=== PATIENT | male | born 1955 | race Caucasian/White ===

== ENCOUNTER 2023-09-10 10:48 | Emergency (ER) | payer OTHER, SELFPAY ==
[2023-09-10 11:00] VITALS: BP 137/85
--- NOTE | 2023-09-10 11:20 | ED.GENMED ---
History of Present Illness
<Alma Donnelly PA-C - Last Filed: 09/10/23 13:53>
General
Chief Complaint: Chest Problem
Source: patient
Exam Limitations: none
Time Seen by Provider: 09/10/23 11:14
Nursing documentation reviewed up to this point in time: agreed with
History of Present Illness
History of Present Illness:
This is a 67 y/o male with a pmh of tobacco use presenting emergency room today with concerns of left-sided chest pain, left upper back pain for the past few days. Patient states that he will wake up and think he is having a heart attack. Patient
states that when he wakes up he will feel pain on the left side of his chest and then he states that this pain will start to subside as the day goes on. Patient states that he has had shingles in the past but does not recall where it was on his
body. Patient states he also has a rash on his left upper back. Patient states that the rash has gotten better. Patient denies any fevers or chills. Patient denies any personal history of cardiac disease, denies any family history of cardiac
disease. Patient denies any shortness of breath. Patient states that he is use no recent antibiotics. 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
be worse at the end of the day of work.
Past History
<Alma Donnelly PA-C - Last Filed: 09/10/23 13:53>
Past History
ED Past Medical History: None
ED Past Surgical History: None
Social History
Tobacco: Smoker
Alcohol: Daily
Drug: None
Personal:
Living: with family
Employment: Employed
Review of Systems
<Alma Donnelly PA-C - Last Filed: 09/10/23 13:53>
Review of Systems
All Other Systems: ROS reviewed and negative except as documented in HPI and ROS
Phy Exam
<Alma Donnelly PA-C - Last Filed: 09/10/23 13:53>
Physical Exam
Physical Exam:
General: Patient is well appearing and in no acute distress; non-toxic
Skin: Warm and dry, there is a healing herpetic rash on the left back along the T1-T2 dermatome
Head: Normocephalic, atraumatic
Eyes: Sclera non-icteric. EOMs intact. PERRLA.
Cardiac: Regular rate and rhythm, no murmurs. No tenderness palpation external chest wall
Peripheral Vascular: No lower extremity swelling or edema.
Pulm: Normal respiratory effort, no wheezes, rales, or rhonchi
Musculoskeletal: No pain with passive ROM of left shoulder. Full ROM of bilateral upper and lower extremities.
Neuro: CN II-XII intact, no focal neurologic deficits.
Psychiatric: Appropriate mood and affect.
Course
<Alma Donnelly PA-C - Last Filed: 09/10/23 13:53>
Orders/Labs/Results
Orders:
Orders
09/10/23 11:04
Electrocardiogram (*1) Urgent
Reason for Study: Other
Other Reason for Exam: chest problem
09/10/23 11:05
EKG- Treatment ONCE
09/10/23 11:43
Gabapentin [Neurontin] 100 mg PO NOW STA
09/10/23 11:47
Gabapentin [Neurontin] 300 mg PO NOW STA
09/10/23 12:14
Troponin I Urgent
Vital Signs
Initial and Last Documented VS:
Initial Vital Signs
Temp Pulse Resp BP Pulse Ox
97.5 F 75 18 137/85 97
09/10/23 11:00 09/10/23 11:00 09/10/23 11:00 09/10/23 11:00 09/10/23 11:00
Last Documented Vital Signs
Temp Pulse Resp BP Pulse Ox
97.5 F 72 16 114/89 96
09/10/23 11:00 09/10/23 12:04 09/10/23 12:04 09/10/23 11:22 09/10/23 12:04
<Malachi Patel DO - Last Filed: 09/10/23 11:46>
Orders/Labs/Results
Orders:
Orders
09/10/23 11:04
Electrocardiogram (*1) Urgent
Reason for Study: Other
Other Reason for Exam: chest problem
09/10/23 11:05
EKG- Treatment ONCE
09/10/23 11:43
Gabapentin [Neurontin] 100 mg PO NOW STA
09/10/23 11:47
Gabapentin [Neurontin] 300 mg PO NOW STA
09/10/23 12:14
Troponin I Urgent
Vital Signs
Initial and Last Documented VS:
Initial Vital Signs
Temp Pulse Resp BP Pulse Ox
97.5 F 75 18 137/85 97
09/10/23 11:00 09/10/23 11:00 09/10/23 11:00 09/10/23 11:00 09/10/23 11:00
Last Documented Vital Signs
Temp Pulse Resp BP Pulse Ox
97.5 F 72 16 114/89 96
09/10/23 11:00 09/10/23 12:04 09/10/23 12:04 09/10/23 11:22 09/10/23 12:04
<Alma Donnelly PA-C - Last Filed: 09/10/23 13:53>
MDM/Problems Addressed
Differential Diagnosis Includes:
ddx include post herpetic neuralgia, unstable angina, costochondritis, musculoskeletal sprain/strain
MDM/Problems Addressed:
Chest pain:
This is a 67 y/o male with a pmh of tobacco use presenting emergency room today with concerns of left-sided chest pain, left upper back pain for the past few days. Patient states that he will wake up and think he is having a heart attack. Patient
states that when he wakes up he will feel pain on the left side of his chest and then he states that this pain will start to subside as the day goes on. Patient has had shingles in the past. On exam, he does have healing herpetic lesions on the
left side of the back on T1 1 T2 dermatome. Doubt ACS, most likely postherpetic neuralgia but considering patient age, and other risk factors, EKG and troponin was ordered which demonstrates an normal sinus rhythm first-degree AV block and an
undetectable troponin. During these findings, patient stable for discharge, will treat patient with gabapentin. Patient stable for discharge follow-up with his primary care provider.
Chronic conditions affecting care:
previous tobacco use, hx of shingles
Acute Exacerbation and/or Progression of Chronic Illness:
n/a
<Alma Donnelly PA-C - Last Filed: 09/10/23 13:53>
*Pulse Oximetry
Patient hypoxic: no
*EKG
Interpreted by ED Provider?: Yes
EKG Intrepretation Date: 09/10/23
Interpretation: abnormal
Comparison EKG: changes noted (SC interval increase)
Heart Rate: 68
Rate: normal
Rhythm: sinus
Nova: normal axis
Interval: first degree heart block
QRS Pattern: normal QRS
Ischemia: no ischemia
*Critical Care Note
Total Time (30-74mins, 75-104mins- exclusive of procedures): Not Applicable
Data Reviewed
Review of Other/Old Records Reveals: Records (reviewed ER physician documentation from 10/11/16 where patient was seen for chest wall pain)
Source: patient and records
<Alma Donnelly PA-C - Last Filed: 09/10/23 13:53>
Patient Management
Escalation/DeEscalation of care consider admission/obs:
Admit not indicated. Patient stable for discharge.
<Alma Donnelly PA-C - Last Filed: 09/10/23 13:53>
Update Note
Update Note:
1:00 pm-- Patient notes an improvement in her symptoms
ED Attending Note
<Alma Donnelly PA-C - Last Filed: 09/10/23 13:53>
-
Portions of this chart may have been created with voice recognition software.� Occasional wrong word or��sound alike� substitutions may have occurred due to the inherent limitations of voice recognition software.
<Malachi Patel DO - Last Filed: 09/10/23 11:46>
ED Attending Note
Patient seen and examined by attending physician: Yes
I performed the substantive portion of visit, reviewed & personally made and approve the management plan that is documented in note by myself or JABARI.: Yes
ED Attending Note:
I have seen and evaluated the patient with a [id number] encounter. I have spoken to the advance practicer provider and involved in the medical history, the physical exam, medical decision making.
Evaluation and management service: agree unless noted differently below.
Results interpretation: agree unless noted differently below.
Focused HPI: 67-year-old male presenting with left-sided chest pain. Patient states it is intermittent and not worse with exertion or food intake. Of note, patient found to have a rash around his left flank. It does resemble shingles. Patient
states he noted a week ago the rash is actually improved
Physical exam: Sitting in bed comfortably. Shingles rash noted to left flank. Heart regular rate and rhythm
Medical Decision Making: We discussed likely postherpetic neuralgia. Will start gabapentin. Given duration of symptoms, will obtain 1 troponin. Screening EKG nonischemic
Discharge Plan
Departure
Patient Disposition: Home (Routine Discharge)
Date of Disposition: 09/10/23
Time of Disposition: 12:56
Patient with high blood pressure during this ER visit?: Yes
Condition: Good
Discharge Problem:
Post herpetic neuralgia
Instructions: Shingles, BLOOD PRESSURE
Prescriptions:
New
gabapentin 300 mg capsule
300 mg PO DAILY Qty: 10 0RF
No Action
hydrocodone-acetaminophen 1 TABLET tablet
1 - 2 tab PO Q4HPRN PRN (Reason: pain) Qty: 12 0RF
tamsulosin 0.4 MG capsule
0.4 mg PO DAILY Qty: 14 0RF
azithromycin 250 MG tablet
250 mg PO DAILY Qty: 6 0RF
Referrals:
Alyssa Jarquin DO [Family Provider] -
Activity Restrictions/Additional Instructions:
You can start taking Gabapentin for your symptoms. You can take one tablet once daily. You can increase this to two tablets twice daily as needed.
Please follow up with your primary care provider.
Please return to the emergency department should you experience an acute worsening of your symptoms, shortness of breath, abdominal pain, fevers or chills, confusion, weakness, or any other signs or symptoms concerning to you.
Interventions
Interventions:
*Risk Screen - Suicide Last Done: 09/10/23 11:00
*General Assessment Last Done: 09/10/23 11:00
*Neglect/Abuse Screening Last Done: 09/10/23 11:00
ED- Fall Risk Assessment Last Done: 09/10/23 11:29
*Nursing Disposition Last Done: 09/10/23 13:14
ED- Cardiac Assessment Last Done: 09/10/23 11:29
ED- Pulmonary Assessment Last Done: 09/10/23 11:29
ED-Skin Assessment Last Done: 09/10/23 11:29
Discharge Date and Time
Discharge Date/Time: 09/10/23 13:14
Print Language: COMORAN
[2023-09-10 11:22] VITALS: BP 114/89; BMI 22.6
[2023-09-10] MEDS: NEURONTIN 300 MG PO (12:03)
[2023-09-10 12:53] LABS: Troponin I < 0.012 ng/ml
== END 2023-09-10 13:14 | disposition home or self-care (01) ==
LOC: EMR 10:48
PROVIDERS: Physician Assistant; EMERGENCY PHYSICIAN Student in an Organized Health Care Education/Training Program; FAMILY PHYSICIAN Family Medicine
DX: B02.29 Other postherpetic nervous system involvement (principal); R07.89 Other chest pain; M54.6 Pain in thoracic spine; R03.0 Elevated blood-pressure reading, without diagnosis of hypertension; B02.9 Zoster without complications; I44.0 Atrioventricular block, first degree; F17.200 Nicotine dependence, unspecified, uncomplicated; Z88.0 Allergy status to penicillin; Z91.048 Other nonmedicinal substance allergy status
CPT/HCPCS: 99284; 84484; 93005